=== PATIENT | male | born 2000 | race African-American/Black ===

== ENCOUNTER 2021-07-23 19:37 | Emergency (ER) | payer MEDICAID ==
[~2021-07-23] VITALS: Ht 182.9 cm; Wt 181.8 kg
[2021-07-23 19:47] VITALS: BP 143/101
[2021-07-24] MEDS ORDERED: CEPH500C2 MT (01:04)
== END 2021-07-24 01:10 | disposition home or self-care (01) ==
LOC: ER 19:37
DX: R59.1 Generalized enlarged lymph nodes (principal); I49.9 Cardiac arrhythmia, unspecified
CPT/HCPCS: 70486; 71045; 93005; 99285

== ENCOUNTER 2021-09-07 10:19 | Emergency (ER) | payer MEDICAID ==
[~2021-09-07] VITALS: Ht 182.9 cm; Wt 170.0 kg
[~2021-09-07 10:19] MED LIST: CEPH500C2 MT
[2021-09-07 10:22] VITALS: BP 141/85
[2021-09-07] MEDS ORDERED: ACETAMINOPHEN 325MG TABLET PO ONE (11:30)
[2021-09-07] MEDS ORDERED: OXYM30SP26 BOTHNSTRLS (12:24)
== END 2021-09-07 12:46 | disposition home or self-care (01) ==
LOC: ER 10:19
DX: U07.1 COVID-19 (principal); J06.9 Acute upper respiratory infection, unspecified
CPT/HCPCS: 71045; 99284; C9803; U0003; U0005

== ENCOUNTER 2022-07-31 09:39 | Emergency (ER) | payer MEDICAID ==
[~2022-07-31] VITALS: Ht 182.9 cm; Wt 163.3 kg
[~2022-07-31 09:39] MED LIST changes: +OXYM30SP26 BOTHNSTRLS
[2022-07-31] MEDS ORDERED: VISCOUS LIDOCAINE 2% 15 ML UDC PO STA (09:59)
[2022-07-31] MEDS ORDERED: ONDANSETRON HCL 4MG/2ML INJ IV STA (09:59)
[2022-07-31] MEDS ORDERED: PANTOPRAZOLE SODIUM 40 MG/VIAL IV STA (09:59)
[2022-07-31] MEDS ORDERED: MAGNESIUM/ALUMINUM HYDROXIDE/SIMETHICONE 30ML UDC PO STA (09:59)
[2022-07-31] MEDS ORDERED: PANTOPRAZOLE 40MG DR TABLET PO ONE (10:00)
[2022-07-31] MEDS ORDERED: SODIUM CHLORIDE 0.9% 1,000 ML IV ONE (10:00)
[2022-07-31] MEDS ORDERED: ONDANSETRON 4MG ODT PO ONE (10:00)
[2022-07-31 10:39] LABS: BASOPHILS % 0.3 % (0.0-2.0); EOSINOPHILS % 0.3 % (0.0-5.0); HEMATOCRIT. 46.8 % (42.0-52.0); HEMOGLOBIN. 15.6 g/dL (14.0-18.0); LYMPHOCYTES % 8.6 % (20.0-50.0); MEAN CORPUSCULAR HEMOGLOBIN 28.8 pg (28.0-32.0); MEAN CORPUSCULAR VOLUME 86.2 fL (80.0-94.0); MEAN PLATELET VOLUME 7.8 fl (7.4-10.4); MONOCYTES % 3.9 % (2.0-8.0); NEUTROPHILS % 86.9 % (40.0-76.0); PLATELET 264 x1000/uL (130-400); RED BLOOD CELL COUNT 5.43 mill/uL (4.7-6.1); RED CELL DISTRIBUTION WIDTH 14.7 % (11.6-14.6)
[2022-07-31 10:44] LABS: CHLORIDE 103 mEq/L (98-107)
[2022-07-31 10:46] LABS: INR 1.2; PROTHROMBIN TIME 12.3 sec (9.6-11.0)
[2022-07-31 10:52] LABS: ETHANOL BLOOD < 10 mg/dL
[2022-07-31 11:41] VITALS: BP 153/86
[2022-07-31] MEDS ORDERED: ONDA4TAB50 MT (11:53)
[2022-07-31] MEDS ORDERED: IBUP-2029 MT (11:53)
== END 2022-07-31 12:03 | disposition home or self-care (01) ==
LOC: ER 09:39
DX: K80.20 Calculus of gallbladder without cholecystitis without obstruction (principal); R10.13 Epigastric pain; I10 Essential (primary) hypertension; F20.9 Schizophrenia, unspecified; F31.9 Bipolar disorder, unspecified; R73.03 Prediabetes
CPT/HCPCS: 36415; 71045; 76705; 80053; 80320; 83690; 85025; 85610; 99285; J7030; Q0162; G0480

== ENCOUNTER 2025-04-23 01:07 | Emergency (ER) | payer MEDICAID ==
[~2025-04-23] VITALS: Ht 182.9 cm; Wt 158.9 kg
[~2025-04-23 01:07] MED LIST changes: +IBUP-2029 MT; +ONDA4TAB50 MT
[2025-04-23 01:20] VITALS: BP 178/91; TEMP 36.7; O2SAT 98
[2025-04-23 01:26] VITALS: PULSE 95; RESP 18; O2SAT 98
[2025-04-23 03:00] LABS: CLARITY URINE CLEAR (CLEAR); COLOR URINE YELLOW (YELLOW); SPECIFIC GRAVITY URINE 1.024 (1.005-1.030)
[2025-04-23 03:01] LABS: GLUCOSE URINE NEGATIVE (NEGATIVE); KETONES URINE TRACE (NEGATIVE); LEUKOCYTE ESTERASE URINE NEGATIVE (NEGATIVE); NITRITE URINE NEGATIVE (NEGATIVE); OCCULT BLOOD URINE NEGATIVE (NEGATIVE); PH URINE 5.5 (4.5-8.0); PROTEIN URINE NEGATIVE (NEGATIVE); UROBILINOGEN URINE 0.2 E.U./dL (0.2-1.0)
== END 2025-04-23 03:58 | disposition left against medical advice (07) ==
LOC: ER 01:07
DX: R51.9 Headache, unspecified (principal); R30.9 Painful micturition, unspecified; F20.9 Schizophrenia, unspecified; F31.9 Bipolar disorder, unspecified; Z53.21 Procedure and treatment not carried out due to patient leaving prior to being seen by health care provider
CPT/HCPCS: 81003